=== PATIENT | male | born 1965 | race Caucasian/White ===

== ENCOUNTER 2017-02-06 04:08 | Emergency (ER) | payer OTHER ==
[~2017-02-06] VITALS: Ht 180.3 cm; Wt 103.0 kg
[~2017-02-06 04:08] MED LIST: CEFP250T PO; LORT5TAB PO; PROT40TA PO
[2017-02-06 04:11] VITALS: BP 99/58; PULSE 66; RESP 18; TEMP 97.5
[2017-02-06] MEDS ORDERED: SODIUM CHLOR 0.9% 1000 ML INJ 1,000 ML IV SCH (04:21)
[2017-02-06] MEDS ORDERED: ADDE20 PO (04:21)
[2017-02-06] MEDS ORDERED: LOSA25TA PO (04:21)
[2017-02-06 04:25] VITALS: O2SAT 99
--- NOTE | 2017-02-06 04:27 | PD ---
HPI Chief Complaint: Flank/Kidney Pain Time Seen by Provider: 04:14 Travel History International Travel<30 days: No Contact w/Intl Traveler<30days: No Traveled to known affect area: No History of Present Illness HPI 51-year-old male complains of right flank pain. Patient states that he started having diarrhea all day yesterday. Patient started having tingling sensation around the penis area tonight. Patient started having severe right flank pain about an hour prior to coming to the emergency room. Patient states the pain is sharp severe pain started right flank area with radiation to right low quadrant of the abdomen. Patient complaining of nausea but no vomiting. Patient denies any fever chills. Patient has history of fractured rib recently. Patient took hydrocodone and Klonopin tonight prior to arrival. On a scale of 1-10 the pain is a 10. PFSH Past Medical History Arthritis: No Asthma: No Autoimmune Disease: No Blood Disorders: No Anxiety: Yes (ON AND OFF) Depression: Yes (MILD YEARS AGO) Heart Rhythm Problems: No Cancer: No Cardiovascular Problems: No High Cholesterol: No Chemotherapy: No Chest Pain: No Congestive Heart Failure: No COPD: No Cerebrovascular Accident: No Diabetes: No Diminished Hearing: No Endocrine: No GERD: Yes Glaucoma: No Genitourinary: No Headaches: No Hepatitis: No Hiatal Hernia: No Hypertension: No Immune Disorder: No Kidney Stones: No Musculoskeletal: No Neurologic: No Psychiatric: No Reproductive: No Respiratory: Yes (SLEEP APNEA) Immunizations Current: Yes Migraines: No Myocardial Infarction: No Radiation Therapy: No Renal Failure: No Seizures: No Sickle Cell Disease: No Sleep Apnea: Yes Thyroid Disease: No Ulcer: No Past Surgical History Abdominal Surgery: Yes (1975 APPENDECTOMY) AICD: No Appendectomy: Yes (1975) Arteriovenous Shunt: No Cardiac Surgery: No Cholecystectomy: No Ear Surgery: No Endocrine Surgery: No Eye Surgery: No Genitourinary Surgery: No Gynecologic Surgery: No Insulin Pump: No Joint Replacement: No Oral Surgery: No Pacemaker: No Thoracic Surgery: No Social History Alcohol Use: Yes (SOCIALLY) Tobacco Use: No Substance Use: No Allergies-Medications (Allergen,Severity, Reaction): Coded Allergies: ampicillin (Unverified Allergy, Severe, RASH, REDNESS, 02/06/17) doxycycline (Unverified Allergy, Severe, RASH, REDNESS, 02/06/17) minocycline (Unverified Allergy, Severe, RASH, REDNESS, 02/06/17) tigecycline (Unverified Allergy, Severe, RASH, REDNESS, 02/06/17) Reported Meds & Prescriptions Reported Meds & Active Scripts Active Reported Adderall (Amphetamine-Dextroamphetamine) 20 Mg Tab 20 Mg PO DAILY Avoid late evening doses. Space doses at least 4 to 6 hours if more than once/day dosing. Losartan (Losartan Potassium) 25 Mg Tab 25 Mg PO DAILY Review of Systems General / Constitutional: No: Fever Eyes: No: Visual changes HENT: No: Headaches Cardiovascular: No: Chest Pain or Discomfort Respiratory: No: Shortness of Breath Gastrointestinal: Positive: Nausea, Abdominal Pain Genitourinary: No: Dysuria Musculoskeletal: No: Pain Skin: No Rash Neurologic: No: Weakness Psychiatric: No: Depression Endocrine: No: Polydipsia Hematologic/Lymphatic: No: Easy Bruising Physical Exam Narrative GENERAL: Well-nourished, well-developed patient. SKIN: Focused skin assessment warm/dry. HEAD: Normocephalic. EYES: No scleral icterus. No injection or drainage. NECK: Supple, trachea midline. No JVD or lymphadenopathy. CARDIOVASCULAR: Regular rate and rhythm without murmurs, gallops, or rubs. RESPIRATORY: Breath sounds equal bilaterally. No accessory muscle use. GASTROINTESTINAL: Abdomen soft, non-tender, nondistended. MUSCULOSKELETAL: No cyanosis, or edema. BACK: Patient has moderate tenderness on palpation right flank area. Neurologic exam normal. Data Data Last Documented VS Vital Signs Date Time Temp Pulse Resp B/P (MAP) Pulse Ox O2 Delivery O2 Flow Rate FiO2 02/06/17 06:01 68 18 127/66 (86) 98 Room Air 02/06/17 04:11 97.5 Orders Orders Complete Blood Count With Diff (02/06/17 04:21) Comprehensive Metabolic Panel (02/06/17 04:21) Prothrombin Time / Inr (Pt) (02/06/17 04:21) Act Partial Throm Time (Ptt) (02/06/17 04:21) Urinalysis - C+S If Indicated (02/06/17 04:21) Ct Abd/Pel W/O Iv Contrast (02/06/17 04:21) Iv Access Insert/Monitor (02/06/17 04:21) Ecg Monitoring (02/06/17 04:21) Oximetry (02/06/17 04:21) Morphine Inj (Morphine Inj) (02/06/17 04:30) Ondansetron Inj (Zofran Inj) (02/06/17 04:30) Sodium Chlor 0.9% 1000 Ml Inj (Ns 1000 M (02/06/17 04:21) Sodium Chloride 0.9% Flush (Ns Flush) (02/06/17 04:30) Ketorolac Inj (Toradol Inj) (02/06/17 04:30) Labs Laboratory Tests Test 02/06/17 04:25 02/06/17 05:25 White Blood Count 11.5 TH/MM3 Red Blood Count 5.99 MIL/MM3 Hemoglobin 17.2 GM/DL Hematocrit 51.1 % Mean Corpuscular Volume 85.3 FL Mean Corpuscular Hemoglobin 28.7 PG Mean Corpuscular Hemoglobin Concent 33.6 % Red Cell Distribution Width 12.8 % Platelet Count 137 TH/MM3 Mean Platelet Volume 10.5 FL Neutrophils (%) (Auto) 55.9 % Lymphocytes (%) (Auto) 33.0 % Monocytes (%) (Auto) 5.4 % Eosinophils (%) (Auto) 5.0 % Basophils (%) (Auto) 0.7 % Neutrophils # (Auto) 6.4 TH/MM3 Lymphocytes # (Auto) 3.8 TH/MM3 Monocytes # (Auto) 0.6 TH/MM3 Eosinophils # (Auto) 0.6 TH/MM3 Basophils # (Auto) 0.1 TH/MM3 CBC Comment DIFF FINAL Differential Comment Prothrombin Time 11.4 SEC Prothromb Time International Ratio 1.0 RATIO Activated Partial Thromboplast Time 26.4 SEC Blood Urea Nitrogen 16 MG/DL Creatinine 1.20 MG/DL Random Glucose 133 MG/DL Total Protein 7.2 GM/DL Albumin 3.7 GM/DL Calcium Level 8.0 MG/DL Alkaline Phosphatase 72 U/L Aspartate Amino Transf (AST/SGOT) 27 U/L Alanine Aminotransferase (ALT/SGPT) 40 U/L Total Bilirubin 0.6 MG/DL Sodium Level 137 MEQ/L Potassium Level 3.8 MEQ/L Chloride Level 102 MEQ/L Carbon Dioxide Level 27.5 MEQ/L Anion Gap 8 MEQ/L Estimat Glomerular Filtration Rate 63 ML/MIN Urine Color [place] Urine Turbidity CLOUDY Urine pH 5.5 Urine Specific [place] 1.030 Urine Protein 30 mg/dL Urine Glucose (UA) NEG mg/dL Urine Ketones 15 mg/dL Urine Occult Blood LARGE Urine Nitrite NEG Urine Bilirubin NEG Urine Leukocyte Esterase NEG Urine RBC 100-200 /hpf Urine WBC 0-2 /hpf Urine Squamous Epithelial Cells 0-5 /hpf Urine Bacteria RARE /hpf Microscopic Urinalysis Comment CULT NOT INDICATED MDM Medical Decision Making Medical Screen Exam Complete: Yes Emergency Medical Condition: Yes Interpretation(s) 5:13 AM. CBC WBC 11.5. Hemoglobin 17.2 hematocrit 51.1. Platelet 137. Normal differential. CMP within normal limit. Differential Diagnosis Differential diagnosis including nephrolithiasis, pyelonephritis, colitis, cholecystitis, musculoskeletal. Narrative Course 51-year-old male with right flank pain and nausea. Normal saline solution 1 25 cc an hour. Morphine 4 mg IV. Toradol 30 mg IV. Zofran 4 mg IV. Diagnosis Primary Impression: Nephrolithiasis Patient Instructions: General Instructions Additional Instructions: Take medications needed for pain. Follow-up with personal physician and urologist. Return if worse. Med/Other Pt SpecificInfo: Prescription(s) given Scripts Methocarbamol (Robaxin) 750 Mg Tab 750 MG PO QID for Muscle Spasm, #40 TAB 0 Refills Prov: Uvaldo Roy MD 02/06/17 Ibuprofen (Ibuprofen) 600 Mg Tab 600 MG PO TID for Pain, #30 TAB 0 Refills Prov: Uvaldo Roy MD 02/06/17 Disposition: 01 DISCHARGE HOME Condition: Stable Uvaldo Roy MD Feb 06, 2017 04:27
[2017-02-06] MEDS ORDERED: SODIUM CHLORIDE 0.9% FLUSH 10 ML FLUSH IV FLUSH PRN (04:30)
[2017-02-06] MEDS ORDERED: MORPHINE SULFATE 4 MG/ML INJ IV PUSH ONE (04:30)
[2017-02-06] MEDS ORDERED: KETOROLAC TROMETHAMINE 30 MG/ML (IVP) VIAL IVP ONE (04:30)
[2017-02-06] MEDS ORDERED: ONDANSETRON HCL 4 MG/2 ML VIAL IVP ONE (04:30)
[2017-02-06 04:37] LABS: AUTOMATED NEUTROPHIL # 6.4 TH/MM3 (1.8-7.7); BASOPHIL # 0.1 TH/MM3 (0-0.2); BASOPHIL % 0.7 % (0.0-2.0); EOSINOPHIL # 0.6 TH/MM3 (0-0.4); HEMATOCRIT 51.1 % (39.0-51.0); LYMPHOCYTE # 3.8 TH/MM3 (1.0-4.8); MEAN CELL VOLUME 85.3 FL (80.0-100.0); MEAN CORPUSCULAR HEMOGLOBIN 28.7 PG (27.0-34.0); MEAN CORPUSCULAR HGB CONC 33.6 % (32.0-36.0); MONO % 5.4 % (0.0-8.0); NEUT % 55.9 % (16.0-70.0); PLATELET COUNT 137 TH/MM3 (150-450); RED BLOOD COUNT 5.99 MIL/MM3 (4.50-5.90); RED CELL DISTRIBUTION WIDTH 12.8 % (11.6-17.2); WHITE BLOOD COUNT 11.5 TH/MM3 (4.0-11.0)
[2017-02-06 04:42] LABS: HEMO FLAGS DIFF FINAL
[2017-02-06 04:44] LABS: CHLORIDE 102 MEQ/L (98-107); POTASSIUM 3.8 MEQ/L (3.5-5.1); SODIUM (NA) 137 MEQ/L (136-145)
[2017-02-06 04:47] LABS: ANION GAP 8 MEQ/L (5-15); BICARBONATE 27.5 MEQ/L (21.0-32.0)
[2017-02-06 04:48] LABS: APTT (PATIENT) 26.4 SEC (24.3-30.1); BLOOD UREA NITROGEN 16 MG/DL (7-18); PROTHROMBIN TIME - PATIENT 11.4 SEC (9.8-11.6)
[2017-02-06 04:51] LABS: ALT (GPT) 40 U/L (12-78); AST (GOT) 27 U/L (15-37); GLOMERULAR FILTRATION RATE 63 ML/MIN (>89)
[2017-02-06 04:52] LABS: TOTAL BILIRUBIN ADULT 0.6 MG/DL (0.2-1.0)
[2017-02-06 04:53] LABS: ALKALINE PHOSPHATASE 72 U/L (45-117)
[2017-02-06 05:30] LABS: BLOOD, URINE LARGE (NEG); GLUCOSE,URINE NEG (NEG); KETONE, URINE 15 mg/dL (NEG); NITRITE,URINE NEG (NEG); PH, URINE 5.5 (5.0-8.5)
[2017-02-06 05:37] LABS: URINE COLOR AMBER (YELLW/STRAW)
[2017-02-06 05:38] LABS: BACTERIA, URINE RARE /hpf; COMMENT (UR) CULT NOT INDICATED; CULTURE IF INDICATED CULT NOT INDICATED; RBC, URINE 100-200 /hpf (0-3); SQUAMOUS EPITHELIAL CELL URINE 0-5 /hpf (0-5); WBC, URINE 0-2 /hpf (0-5)
[2017-02-06 06:01] VITALS: BP 127/66; PULSE 68; RESP 18; O2SAT 98
--- NOTE | 2017-02-06 06:50 | RADRPT ---
EXAM DATE/TIME: 02/06/2017 05:45 CORRECTION Corrected on: February 06, 2017; Fixed time on report [place] COMPARISON: No previous studies available for comparison. INDICATIONS : Right flank pain. ORAL CONTRAST: No oral contrast ingested. RADIATION DOSE: 27.15 CTDIvol (mGy) ; High dose protocol MEDICAL HISTORY : None SURGICAL HISTORY : Appendectomy. ENCOUNTER: Initial ACUITY: 1 day PAIN SCALE: 8/10 LOCATION: Right flank TECHNIQUE: Volumetric scanning of the abdomen and pelvis was performed. Using automated exposure control and ad justment of the mA and/or kV according to patient size, radiation dose was kept as low as reasonably achievable to obtain optimal diagnostic quality images. DICOM format image data is available electro nically for review and comparison. FINDINGS: LOWER LUNGS: The visualized lower lungs are clear. LIVER: 1 cm hypodensity in the right hepatic lobe is probably a cyst. There is no dilation of the biliary t ree. No calcified gallstones. SPLEEN: Prominent at 15.8 cm. PANCREAS: Within normal limits. KIDNEYS: 2-3 mm calculus in the midpole collecting system of the left kidney is nonobstructing. No stones on t he right. Both ureters are normal. ADRENAL GLANDS: Within normal limits. VASCULAR: There is no aortic aneurysm. BOWEL/MESENTERY: The stomach, small bowel, and colon demonstrate no acute abnormality. There is no free intraperitone al air or fluid. ABDOMINAL WALL: Within normal limits. RETROPERITONEUM: There is no lymphadenopathy. BLADDER: No wall thickening or mass. REPRODUCTIVE: Within normal limits. INGUINAL: There is no lymphadenopathy or hernia. MUSCULOSKELETAL: Within normal limits for patient age. CONCLUSION: 1. Nonobstructing subcentimeter isolated stone in the midpole collecting system of the left kidney. N o stones on the right. 2. Probable hepatic cysts. 3. Splenomegaly. 4. Otherwise negative. Tito Yee MD on February 06, 2017 at 6:45 Board Certified Radiologist. This report was verified electronically.
[2017-02-06] MEDS ORDERED: ROBA750T PO (06:58)
[2017-02-06] MEDS ORDERED: IBUP-232 PO (06:58)
[2017-02-06 07:02] VITALS: BP 120/60; PULSE 68; RESP 16; O2SAT 98
== END 2017-02-06 07:14 | disposition home or self-care (01) ==
LOC: PHED 04:08
DX: N20.0 Calculus of kidney (principal)
CPT/HCPCS: 74176; 80053; 81001; 85025; 85610; 85730; 96361; 96374; 96375; 99285; J1885; J2270; J2405; J7030